=== PATIENT | female | born 1950 | race African-American/Black ===

== ENCOUNTER 2024-08-01 12:13 | Emergency (ER) | payer BC, MEDICAID, OTHER ==
[~2024-08-01] VITALS: Ht 170.2 cm; Wt 59.0 kg
[~2024-08-01 12:13] MED LIST: ARIP20TA2; BENZ2TAB65; CYCL-108; FERR-63; HYDR25TA; LISI40TA20; NAPR-679; OMEP20CA4; OYSCO; TRAM50TA; [UNRECOGNIZED DRUG - CODE]
[2024-08-01 12:16] VITALS: O2SAT 97
[2024-08-01] MEDS: ONDANSETRON HCL 4MG/2ML INJ IV STA (12:42)
[2024-08-01] MEDS: FAMOTIDINE 20MG/2ML VIAL IV STA (12:42)
[2024-08-01] MEDS: SODIUM CHLORIDE 0.9% 1,000 ML IV ONE (12:43)
[2024-08-01] MEDS: MORPHINE SULFATE 4 MG/ML INJ (FOR IV/IM USE) IV STA (12:43)
[2024-08-01 12:57] LABS: BASOPHILS % 0.6 % (0.0-2.0); HEMATOCRIT. 36.2 % (36.0-48.0); HEMOGLOBIN. 11.9 g/dL (12.0-16.0); LYMPHOCYTES % 21.5 % (20.0-50.0); MEAN CORPUSCULAR HEMOGLOBIN 28.6 pg (28.0-32.0); MEAN CORPUSCULAR HGB CONC 32.7 g/dL (31.0-37.0); MEAN CORPUSCULAR VOLUME 87.4 fL (81.0-99.0); MEAN PLATELET VOLUME 7.2 fl (7.4-10.4); MONOCYTES % 6.2 % (2.0-8.0); NEUTROPHILS % 70.7 % (40.0-76.0); PLATELET 286 x1000/uL (130-400); RED BLOOD CELL COUNT 4.14 mill/uL (4.2-5.4); RED CELL DISTRIBUTION WIDTH 13.6 % (11.6-14.6); WHITE BLOOD COUNT 14.7 x1000/uL (4.5-11.0)
[2024-08-01 13:06] LABS: INR 0.9; PROTHROMBIN TIME 10.6 sec (9.6-11.0)
[2024-08-01 13:08] LABS: CHLORIDE 99 mEq/L (98-107); POTASSIUM 3.7 mEq/L (3.5-5.1); SODIUM 135 mEq/L (136-145)
[2024-08-01 13:09] LABS: CARBON DIOXIDE 25 mEq/L (21-32)
[2024-08-01 13:14] LABS: CREATININE 1.2 mg/dL (0.6-1.0); GLUCOSE 178 mg/dL (70-105)
[2024-08-01 13:15] LABS: UREA NITROGEN BLOOD 6 mg/dL (9-23)
[2024-08-01 13:16] LABS: ALANINE AMINOTRANSFERASE 22 IU/L (10-49); ALBUMIN 4.7 g/dL (3.2-4.8); ASPARTATE AMINOTRANSFERASE 37 IU/L (<34); BILIRUBIN DIRECT 0.2 mg/dL (<=3.0)
[2024-08-01 13:17] LABS: BILIRUBIN TOTAL 0.7 mg/dL (0.1-1.0); ETHANOL BLOOD < 10 mg/dL (<10); PROTEIN TOTAL 7.7 g/dL (6.0-8.3)
[2024-08-01] MEDS ORDERED: LOPE2CAP MT (18:05)
[2024-08-01] MEDS ORDERED: GUAI237L83 MT (18:05)
[2024-08-01] MEDS ORDERED: FAMO-135 MT (18:05)
[2024-08-01] MEDS ORDERED: AZIT250T12 MT (18:05)
[2024-08-01 19:11] VITALS: BP 123/75; PULSE 80; RESP 18; TEMP 37.05852; O2SAT 99
== END 2024-08-01 19:16 | disposition home or self-care (01) ==
LOC: ER 12:13
DX: K52.9 Noninfective gastroenteritis and colitis, unspecified (principal); B34.9 Viral infection, unspecified; I10 Essential (primary) hypertension; Z90.710 Acquired absence of both cervix and uterus; Z20.822 Contact with and (suspected) exposure to COVID-19
CPT/HCPCS: 80076; 80048; 80320; 83690; 85025; 85610; 87804 ×2; 36415; 71045; 74176; 93005; 96361; 96374; 96375; 99285; 87426; J3490; J2405; J2270; J7030; G0480